=== PATIENT | male | born 1985 | race Caucasian/White ===

== ENCOUNTER 2020-08-05 08:49 | Emergency (ER) | payer MEDICAID, OTHER ==
[~2020-08-05] VITALS: Ht 167.6 cm; Wt 56.7 kg
[2020-08-05 08:49] VITALS: BP 139/96
== END 2020-08-05 10:49 | disposition home or self-care (01) ==
LOC: ER 08:49
DX: M79.10 Myalgia, unspecified site (principal); M79.601 Pain in right arm; R07.81 Pleurodynia; R51.9 Headache, unspecified; Z88.8 Allergy status to other drugs, medicaments and biological substances; V43.62XA Car passenger injured in collision with other type car in traffic accident, initial encounter; Y93.89 Activity, other specified; Y92.410 Unspecified street and highway as the place of occurrence of the external cause; Y99.8 Other external cause status
CPT/HCPCS: 70450; 71250

== ENCOUNTER 2023-06-09 20:23 | Emergency (ER) | payer MEDICAID ==
[~2023-06-09] VITALS: Ht 167.6 cm; Wt 59.2 kg
[2023-06-10 00:37] VITALS: BP 122/80; PULSE 99; RESP 18; TEMP 98.1
[2023-06-10] MEDS ORDERED: HYDR-4902 PO (02:14)
[2023-06-10] MEDS ORDERED: CLIN1CAP70 PO (02:14)
[2023-06-10 02:32] VITALS: O2SAT 98
[2023-06-10] MEDS: CLINDAMYCIN HCL 150 MG CAP PO ONE (03:28)
[2023-06-10] MEDS: HYDROcodone-ACET 5/325MG TAB PO ONE (03:28)
== END 2023-06-10 03:38 | disposition home or self-care (01) ==
LOC: ER 20:23
DX: K04.7 Periapical abscess without sinus (principal); M54.2 Cervicalgia; M62.838 Other muscle spasm; Z88.8 Allergy status to other drugs, medicaments and biological substances